=== PATIENT | male | born 1995 | race Caucasian/White ===

== ENCOUNTER 2018-01-12 19:00 | Emergency (ER) | payer BC ==
[~2018-01-12] VITALS: Ht 182.9 cm; Wt 67.0 kg
[2018-01-12 19:11] VITALS: TEMP 37.2; Ht 182.9 cm; Wt 67.0 kg
--- NOTE | 2018-01-12 20:25 | DIAGNOSTIC IMAGING REPORT ---
CHEST ONE VIEW PORTABLE CLINICAL HISTORY: 22 years-old Male presenting with Chest Pain. TECHNIQUE: Portable upright AP view of the chest was obtained. COMPARISON: None. FINDINGS: Cardiomediastinal silhouette normal. Lungs and pleural spaces clear. Osseous structures normal. Upper abdomen normal. IMPRESSION: 1. No acute cardiopulmonary disease. Electronically signed by: Alex Iverson M.D. 01/12/2018 8:23 PM Dictated Date/Time: 01/12/2018 8:23 PM
[2018-01-12 20:45] LABS: BASO % 0.2 %; BASO ABS # 0.02 K/uL (0-0.2); EOS % 0.2 %; EOS ABS # 0.03 K/uL (0-0.5); HEMATOCRIT 42.1 % (42-52); IG# 0.02 K/uL (0.00-0.02); LYMPH % 20.4 %; LYMPH ABS # 2.51 K/uL (1.2-3.4); MEAN CELL VOLUME 84.2 fL (80-100); MEAN CORPUSCULAR HGB CONC 35.6 g/dl (32-36); MEAN PLATELET VOLUME 9.2 fL (7.4-10.4); MONO % 5.7 %; NEUT % 73.3 %; NEUT ABS # 9.05 K/uL (1.4-6.5); PLATELET COUNT 284 K/uL (130-400); RED CELL DISTRIBUTION WIDTH CV 12.4 % (11.5-14.5); RED CELL DISTRIBUTION WIDTH SD 37.7 fL (36.4-46.3); WHITE BLOOD COUNT 12.33 K/uL (4.8-10.8)
[2018-01-12] MEDS ORDERED: MULT1CHW4 PO (21:02)
[2018-01-12 21:05] LABS: BLOOD UREA NITROGEN 18 mg/dl (7-18); CALCIUM 9.6 mg/dl (8.5-10.1); CARBON DIOXIDE 26 mmol/L (21-32); CREATININE 0.98 mg/dl (0.60-1.40); GLUCOSE 88 mg/dl (70-99); POTASSIUM 3.4 mmol/L (3.5-5.1); SODIUM 136 mmol/L (136-145)
[2018-01-12 21:10] LABS: CKMB 1.1 ng/ml (0.5-3.6)
[2018-01-12 21:43] VITALS: BP 126/72; PULSE 85; O2SAT 98
--- NOTE | 2018-01-12 23:09 | EMERGENCY ROOM VISIT NOTE ---
History Report prepared by Dario: Douglas Damian Under the Supervision of: Dr. Awais Wilkins D.O. First contact with patient: 20:07 Chief Complaint: CARDIAC ASSESSMENT Stated Complaint: CHEST PAIN Nursing Triage Summary: Pt reports last week he awoke in the middle of the night with chest pain and diaphoretic. Since the episode, he has had mild chest pain. Pt reports he gets SOB on exertion. History of Present Illness The patient is a 22 year old male who presents to the Emergency Room with complaints of intermittent chest pain that started last week. He states that last week he woke up in the middle of the night with intense chest pain. He notes that he ate a lot of cookies late that night so he took Tums, which helped his pain. He adds that he was really hot that night but that was probably due to being under a heavy blanket. The patient says that ever since then, he has had some lingering chest pain, including at the end of when he runs. He states that at the end of the runs, it feels like he "can't take an entire breath". The patient says that he ran yesterday and the same thing happened. He notes that starting around 1000 this morning, he has had this constant light dull chest pain that he currently rates as a 2 out of 10 in severity. He was seen at the urgent care prior to arrival, and was sent here for evaluation. The patient notes that nothing makes the pain better or worse today. He denies any abdominal pain. Patient denies swelling of calves, recent trips, history of immobilization or recent surgery, prior history of DVT, hemoptysis, history of malignancy, history of smoking. He notes no family history of Marfan. Patient denies diabetes, hypertension, hyperlipidemia, CAD, history of sudden at a young age, and smoking. Source of History: patient Onset: Last week Position: chest Symptom Intensity: 2/10 currently Quality: dull Timing: intermittent Associated Symptoms: + SOB, No abdominal pain Note: Denies swelling in calves. Review of Systems See HPI for pertinent positives & negatives. A total of 10 systems reviewed and were otherwise negative. Past Medical & Surgical Medical Problems: (1) No chronic diseases present Family History No pertinent family history Social History Smoking Status: Never Smoker Drug Use: none Occupation Status: student Current/Historical Medications Scheduled Multiple Vitamins W/ Minerals (Adult Gummy), 2 TABS PO DAILY Allergies Coded Allergies: No Known Allergies (Unverified , 01/12/18) Physical Exam Vital Signs Date Time Temp Pulse Resp B/P (MAP) Pulse Ox O2 Delivery O2 Flow Rate FiO2 01/12/18 21:43 85 15 126/72 98 01/12/18 21:01 64 01/12/18 19:11 37.2 89 16 134/87 97 Room Air Physical Exam GENERAL: Sitting up in chair, alert, well appearing, well nourished, no distress , non-toxic EYE EXAM: normal conjunctiva. OROPHARYNX: no exudate, no erythema, lips, buccal mucosa, and tongue normal and mucous membranes are moist NECK: supple, no nuchal rigidity, no adenopathy, non-tender LUNGS: Clear to auscultation. Normal chest wall mechanics HEART: no murmurs, S1 normal and S2 normal ABDOMEN: abdomen soft, non-tender, normo-active bowel sounds, no masses, no rebound or guarding. BACK: Back is symmetrical on inspection and there is no deformity, no midline tenderness, no CVA tenderness. SKIN: no rashes and no bruising UPPER EXTREMITIES: upper extremities are grossly normal, radial pulses equal bilaterally LOWER EXTREMITIES: calves equal bilaterally NEURO EXAM: Normal sensorium, cranial nerves II-XII grossly intact, normal speech, no gross weakness of arms, no gross weakness of legs. Medical Decision & Procedures ER Provider Diagnostic Interpretation: X-ray results as stated below per my review and the radiologist's interpretation : CHEST ONE VIEW PORTABLE CLINICAL HISTORY: 22 years-old Male presenting with Chest Pain. TECHNIQUE: Portable upright AP view of the chest was obtained. COMPARISON: None. FINDINGS: Cardiomediastinal silhouette normal. Lungs and pleural spaces clear. Osseous structures normal. Upper abdomen normal. IMPRESSION: 1. No acute cardiopulmonary disease. Electronically signed by: Alex Iverson M.D. 01/12/2018 8:23 PM Dictated Date/Time: 01/12/2018 8:23 PM Laboratory Results 01/12/18 20:25 Red Blood Count 5.00, Mean Corpuscular Volume 84.2, Mean Corpuscular Hemoglobin 30.0, Mean Corpuscular Hemoglobin Concent 35.6, Mean Platelet Volume 9.2, Neutrophils (%) (Auto) 73.3, Lymphocytes (%) (Auto) 20.4, Monocytes (%) (Auto) 5.7, Eosinophils (%) (Auto) 0.2, Basophils (%) (Auto) 0.2, Neutrophils # (Auto) 9.05, Lymphocytes # (Auto) 2.51, Monocytes # (Auto) 0.70, Eosinophils # (Auto) 0.03, Basophils # (Auto) 0.02 01/12/18 20:25 Test 01/12/18 20:25 White Blood Count 12.33 K/uL (4.8-10.8) Red Blood Count 5.00 M/uL (4.7-6.1) Hemoglobin 15.0 g/dL (14.0-18.0) Hematocrit 42.1 % (42-52) Mean Corpuscular Volume 84.2 fL (80-100) Mean Corpuscular Hemoglobin 30.0 pg (25-34) Mean Corpuscular Hemoglobin Concent 35.6 g/dl (32-36) Platelet Count 284 K/uL (130-400) Mean Platelet Volume 9.2 fL (7.4-10.4) Neutrophils (%) (Auto) 73.3 % Lymphocytes (%) (Auto) 20.4 % Monocytes (%) (Auto) 5.7 % Eosinophils (%) (Auto) 0.2 % Basophils (%) (Auto) 0.2 % Neutrophils # (Auto) 9.05 K/uL (1.4-6.5) Lymphocytes # (Auto) 2.51 K/uL (1.2-3.4) Monocytes # (Auto) 0.70 K/uL (0.11-0.59) Eosinophils # (Auto) 0.03 K/uL (0-0.5) Basophils # (Auto) 0.02 K/uL (0-0.2) RDW Standard Deviation 37.7 fL (36.4-46.3) RDW Coefficient of Variation 12.4 % (11.5-14.5) Immature Granulocyte % (Auto) 0.2 % Immature Granulocyte # (Auto) 0.02 K/uL (0.00-0.02) D-Dimer < 190 ug/L FEU (0-500) Anion Gap 10.0 mmol/L (3-11) Est Creatinine Clear Calc Drug Dose 111.1 ml/min Estimated GFR () 125.4 Estimated GFR (Non- 108.2 BUN/Creatinine Ratio 18.6 (10-20) Calcium Level 9.6 mg/dl (8.5-10.1) Total Creatine Kinase 287 U/L (39-308) Creatine Kinase MB 1.1 ng/ml (0.5-3.6) Creatine Kinase MB Ratio 0.4 (0-3.0) Troponin I < 0.015 ng/ml (0-0.045) Laboratory results per my review. ECG Per My Interpretation Indication: chest pain Rate (beats per minute): 60 Rhythm: sinus rhythm Findings: other (normal axis, diffuse J-point elevation in the inferior, anterior, lateral leads) Comparison ECG Date: no prior available ED Course ED COURSE: Vital signs were reviewed and showed normal vitals. The patients medical record was reviewed The above diagnostic studies were performed and reviewed. ED treatments and interventions as stated above. 2007: The patient was evaluated in room C10. A complete history and physical examination was performed. 2114: Upon reevaluation, the patient is resting comfortably.I discussed my findings with the patient and he understands and agrees with the treatment plan. Based on the patients age, coexisting illnesses, exam and lab findings the decision to treat as an outpatient was made. The patient remained stable while under my care. The patient appeared well at the time of discharge. Medical Decision Differential diagnoses includes but is not limited to acute coronary syndrome, myocardial infarction, pericarditis, pulmonary embolus, aortic dissection, pneumonia, pneumothorax, musculoskeletal, shingles, esophageal. Patient is a 22-year-old male who presents the ER for chest pain which has been present since last week associated with feeling shortness of breath after a long run. Pain today has been present since 10 AM. CBC shows a mild leukocytosis of 12,000. BMP along with troponin was unremarkable. D-dimer was negative. EKG showed J-point elevation. With negative troponin, no cardiac or PE risk factors denies any history of Marfan's or Noreen-Danlos syndrome. Chest pain has been present for over 8 hours with a negative troponin. This is nonischemic and there is nothing to suggest myocarditis. EKG does not suggest pericarditis. D-dimer was negative. Patient was updated at bedside and discharged follow-up PCP as an outpatient. Discussed with Pt concerning signs and symptoms to watch out for. Pt was instructed to follow up with their PCP and discussed with the patient their option to return to the ED at anytime for persistent or worsening symptoms. The appropriate anticipatory guidance and out- patient management, including indications for return to the emergency department , were explained at length to the patient and understood. Medication Reconcilliation Current Medication List: was personally reviewed by me Blood Pressure Screening Patient's blood pressure: Normal blood pressure Impression Primary Impression: Chest pain Scribe Attestation The scribe's documentation has been prepared under my direction and personally reviewed by me in its entirety. I confirm that the note above accurately reflects all work, treatment, procedures, and medical decision making performed by me. Departure Information Dispostion Home / Self-Care Referrals No Doctor, Assigned (PCP) Patient Instructions ED Chest Pain Atypical Unkn Cause, My [facility] Additional Instructions Please follow up with your primary care doctor with in the next 24 hours. Any worsening of your symptoms, please return to the ED immediately. This includes any fevers greater than 100.4, worsening pain, chest pain, shortness breath, persistent nausea, vomiting, unable to eat or drink, or any other concerning signs or symptoms from your standpoint. Please take Tylenol or Motrin as needed for pain. Problem Qualifiers Primary Impression: Chest pain Chest pain type: unspecified Qualified Codes: R07.9 - Chest pain, unspecified
== END 2018-01-12 21:44 | disposition home or self-care (01) ==
LOC: C.EDB 19:02 → C.EDC 21:44
DX: R07.9 Chest pain, unspecified (principal)